=== PATIENT | female | born 1960 | race Hispanic/Latino ===

== ENCOUNTER 2016-04-19 23:50 | Inpatient (IN) | payer OTHER ==
[2016-04-20] MEDS ORDERED: LIBRIUM PO ONE (00:52)
--- NOTE | 2016-04-20 00:54 | Emergency Department Report ---
ED General Adult HPI - General Chief complaint: Seizure Stated complaint: SEIZURE Time Seen by Provider: 04/20/16 00:43 Source: patient, RN notes reviewed Mode of arrival: Stretcher Limitations: No Limitations - History of Present Illness Initial comments: This is a 56-year-old female. She is previously unknown to me. Has a past medical history of cervical fracture, seizure disorder, vertigo, alcohol dependency. Patient is sent to the ER for evaluation of seizure. Patient last reports a prior seizure a few months ago. She is looking to get detoxed from alcohol and last consumed alcohol 10 days ago. She takes Xanax and Ambien chronically. She has been taking her Xanax and not missed any doses. She is not homicidal. She is not suicidal. She is not experiencing hallucinations. She has a chronic right-sided foot drop which is not new, worse and different. Patient had a seizure today. She states that she fell out of a wheelchair. Hit her head. -: Sudden Severity scale (0 -10): 8 Improves with: none Worsens with: none Associated Symptoms: seizure. denies: confusion, chest pain, fever/chills, loss of appetite, malaise, nausea/vomiting, rash, shortness of breath, syncope, weakness - Related Data Home Medications Medication Instructions Recorded Confirmed Last Taken ALPRAZolam [Xanax TAB] 1 mg PO BID 04/20/16 04/20/16 2 Days Ago Zolpidem [Ambien] 10 mg PO QHS 04/20/16 04/20/16 1 Day Ago 10 Allergies Allergy/AdvReac Type Severity Reaction Status Date / Time azithromycin Allergy Unknown Verified 04/20/16 00:28 [From Zithromax Z-Mitchell] Sulfa (Sulfonamide Allergy Rash Verified 04/20/16 00:28 Antibiotics) ED Review of Systems ROS: Stated complaint: SEIZURE Other details as noted in HPI Constitutional: malaise Eyes: denies: vision change ENT: denies: epistaxis Respiratory: denies: cough Cardiovascular: denies: syncope Gastrointestinal: denies: abdominal pain Genitourinary: as per HPI Musculoskeletal: myalgia Neurological: weakness Psychiatric: as per HPI, depression, suicidal thoughts ED Past Medical Hx - Past Medical History Previous Medical History?: No Hx Psychiatric Treatment: Yes (anxiety) - Surgical History Additional Surgical History: Neck and back - Social History Smoking Status: Current Every Day Smoker Substance Use Type: Alcohol - Medications Home Medications: Home Medications Medication Instructions Recorded Confirmed Last Taken Type ALPRAZolam [Xanax TAB] 1 mg PO BID 04/20/16 04/20/16 2 Days Ago History Zolpidem [Ambien] 10 mg PO QHS 04/20/16 04/20/16 1 Day Ago History 10 ED Physical Exam - General Limitations: Physical Limitation General appearance: alert, in no apparent distress - Head Head exam: Present: atraumatic, normocephalic - Eye Eye exam: Present: normal appearance, PERRL, EOMI. Absent: nystagmus - ENT ENT exam: Present: normal exam, normal orophraynx, mucous membranes moist, normal external ear exam - Neck Neck exam: Present: normal inspection, full ROM. Absent: tenderness, meningismus - Respiratory Respiratory exam: Present: normal lung sounds bilaterally. Absent: respiratory distress, wheezes, rales, rhonchi, stridor, chest wall tenderness - Cardiovascular Cardiovascular Exam: Present: regular rate, normal rhythm, normal heart sounds. Absent: bradycardia, tachycardia, irregular rhythm, systolic murmur, diastolic murmur, rubs, gallop - GI/Abdominal GI/Abdominal exam: Present: soft, normal bowel sounds. Absent: distended, tenderness, guarding, rebound, rigid, pulsatile mass - Extremities Exam Extremities exam: Present: normal inspection, full ROM, normal capillary refill , other (there is a chronic right lower extremity foot drop. This is not new, worsening or different). Absent: pedal edema, joint swelling, calf tenderness - Back Exam Back exam: Present: normal inspection, full ROM. Absent: tenderness, CVA tenderness (R), CVA tenderness (L), muscle spasm, paraspinal tenderness, vertebral tenderness - Neurological Exam Neurological exam: Present: alert, oriented X3, normal gait (patient is able to ambulate with assistance), other (Extraocular movements intact. Tongue midline. No facial droop. Facial sensation intact to light touch in the V1, V2 , V3 distribution bilaterally. 5 and 5 strength in 4 extremities.. Sensation is intact to light touch in 4 extremities.). Absent: motor sensory deficit - Psychiatric Psychiatric exam: Present: normal affect, normal mood - Skin Skin exam: Present: warm, dry, intact, normal color. Absent: rash ED Course Vital Signs 04/20/16 04/20/16 04/20/16 00:21 01:30 03:00 Temperature 98.5 F 97.9 F Pulse Rate 94 H 80 Respiratory 14 18 Rate Blood Pressure 148/98 Blood Pressure 148/98 135/89 [Right] O2 Sat by Pulse 99 98 99 Oximetry - Reevaluation(s) Reevaluation #1: 04/20/16 02:16 Differential diagnosis: Intracranial injury, cervical spine injury, electrolyte derangement, alcohol withdrawal seizure, breakthrough seizure secondary to medication noncompliance, benzodiazepine withdrawal seizure Assessment and plan: 56-year-old female with reported history of seizure disorder, not taking antiepileptic drugs at this time, also has history of alcohol dependence, chronically on benzodiazepines. Has a GCS of 15, with an NIH score of 0. No tongue fasciculations. Not currently hallucinating. Does not meet 1013 criteria at this time. Laboratory studies indicated hypomagnesemia, hyponatremia, may be hypovolemic hyponatremia. Banana bag is oriented. IV fluids are ordered. Magnesium supplementation is ordered. Librium is ordered. CT scan of the head and cervical spine are pending. Urinalysis pending. Reevaluation #2: 04/20/16 03:21 patient seen and examined by Caleb Anderson, who recommends 1013 for suicidiality Reevaluation #3: 04/20/16 05:03 cases discussed with the Hospital physician, Dr. Engel, who accepts the patient to her service. At her request, I have discussed the patient's electrolyte imbalance with nephrology on-call, Dr. Chávez. He does not recommend hypertonic saline at this time. He agrees with the patient's current medical management. ED Medical Decision Making - Lab Data Result diagrams: 04/20/16 01:27 04/20/16 01:27 Vital Signs 04/20/16 00:21 Temperature 98.5 F Pulse Rate 94 H Respiratory 14 Rate Blood Pressure 148/98 Blood Pressure 148/98 [Right] O2 Sat by Pulse 99 Oximetry Lab Results 04/20/16 04/20/16 Range/Units 01:27 01:27 WBC 6.3 (4.5-11.0) K/mm3 RBC 3.65 (3.65-5.03) M/mm3 Hgb 12.9 (10.1-14.3) gm/dl Hct 37.7 (30.3-42.9) % MCV 103 H (79-97) fl MCH 35 H (28-32) pg MCHC 34 (30-34) % RDW 16.1 H (13.2-15.2) % Plt Count 106 L (140-440) K/mm3 Sodium 126 L (137-145) mmol/L Potassium 4.1 (3.6-5.0) mmol/L Chloride 89.1 L (98-107) mmol/L Carbon Dioxide 25 (22-30) mmol/L Anion Gap 16 mmol/L BUN 6 L (7-17) mg/dL Creatinine 0.5 L (0.7-1.2) mg/dL Estimated GFR > 60 ml/min BUN/Creatinine Ratio 12.00 % Glucose 98 (65-100) mg/dL Calcium 8.2 L (8.4-10.2) mg/dL Magnesium 1.4 L (1.7-2.3) mg/dL Total Bilirubin 1.2 (0.1-1.2) mg/dL AST 76 H (5-40) units/L ALT 41 (7-56) units/L Alkaline Phosphatase 196 H (35-129) units/L Total Protein 6.1 L (6.3-8.2) g/dL Albumin 2.9 L (3.9-5) g/dL Albumin/Globulin Ratio 0.9 % - Radiology Data Radiology results: report reviewed, image reviewed interpreted by me: X-ray of the chest is negative for acute disease. CT scan of the brain is negative. Noncontrast CT scan of the cervical spine negative for acute disease. Compression deformity noted at C7, this is consistent with patient's prior history. Critical care attestation.: If time is entered above; I have spent that time in minutes in the direct care of this critically ill patient, excluding procedure time. ED Disposition Clinical Impression: Hyponatremia, Hypomagnesemia, Seizure, Mood disorder Disposition: OP ADMITTED IP TO THIS HOSP Is pt being admited?: Yes Condition: Good Referrals: PRIMARY CARE,MD [Primary Care Provider] - 3-5 Days
[2016-04-20 01:44] LABS: Hematocrit 37.7 % (30.3-42.9); Hemoglobin 12.9 gm/dl (10.1-14.3); Mean Corpuscular HGB Conc 34 % (30-34); Mean Corpuscular Hemoglobin 35 pg (28-32); Mean Corpuscular Volume 103 fl (79-97); Platelet Count 106 K/mm3 (140-440); Red Blood Count 3.65 M/mm3 (3.65-5.03); Red Cell Distribution Width 16.1 % (13.2-15.2); White Blood Count 6.3 K/mm3 (4.5-11.0)
[2016-04-20 02:09] LABS: Alanine Aminotransferase 41 units/L (7-56); Albumin 2.9 g/dL (3.9-5); Albumin/Globulin Ratio 0.9 %; Alkaline Phosphatase 196 units/L (35-129); Anion Gap 16 mmol/L; Bilirubin,Total 1.2 mg/dL (0.1-1.2); Blood Urea Nitrogen 6 mg/dL (7-17); Calcium 8.2 mg/dL (8.4-10.2); Carbon Dioxide 25 mmol/L (22-30); Chloride 89.1 mmol/L (98-107); Glucose 98 mg/dL (65-100); Magnesium 1.4 mg/dL (1.7-2.3); Potassium 4.1 mmol/L (3.6-5.0); Sodium 126 mmol/L (137-145); Total Protein 6.1 g/dL (6.3-8.2)
[2016-04-20] MEDS ORDERED: MAGNESIUM SULFATE 2GM/50ML 2 GM/50 ML BAG IV ONE (02:13)
[2016-04-20] MEDS ORDERED: NACL 0.9% 1000 ML 1,000 ML IV ONE (02:13)
[2016-04-20] MEDS ORDERED: VITAMIN B-1 100 MG, FOLVITE 1 MG, INFUVITE 10 ML in NACL 0.9% 1000 ML 1,000 ML IV ONE (02:17)
[2016-04-20 04:07] LABS: Bacteria,Urine 1+ /HPF (Negative); Bilirubin,Urine NEG (Negative); Blood,Urine NEG (Negative); Ketones,Urine NEG (Negative); Leukocyte Esterase,Urine SM (Negative); Nitrite,Urine NEG (Negative); Protein,Urine <15 mg/dL mg/dL (Negative); Urobilinogen,Urine < 2.0 mg/dL (<2.0)
--- NOTE | 2016-04-20 04:40 | Admit Criteria Form ---
Admission Criteria Documentation: SEIZURE Clinical Indications for Admission to Inpatient Care (Place 'X' for any and all applicable criteria): Admission is indicated for seizure and ANY ONE of the following(1)(2)(3)(4)(5): [ X]I. Inpatient admission required rather than observation care (Also use Seizure: Observation Care Criteria as appropriate) because of ANY ONE of the following: [ ]a) Altered mental status that is severe or persistent [ ]b) New focal neurologic deficit that is severe or persistent [ ]c) Metabolic disorder (eg, hypoglycemia, hyponatremia) that is severe or persistent [ ]d) Recurrent seizure [ ]e) Outpatient antiseizure regimen cannot be established (eg , patient cannot tolerate medication, initiation requires inpatient care) [ ]f) Need for ongoing intravenous infusion of antiseizure medication [ ]g) Cardiac arrhythmias of immediate concern [ ]h) Cerebral bleeding, hydrocephalus, or vasospasm monitoring (14) [ ]i) Increased intracranial pressure or cerebral edema monitoring (15) [X ]j) Other treatment or monitoring requiring inpatient admission [ ]II. Status epilepticus [A] or repetitive seizures not controlled with emergent treatment (6)(8) [ ]III. Brain disorder (eg, tumor, edema, and hydrocephalus) that requiring monitoring or intervention available only at inpatient level of care. [ ]IV. Brain insult (eg, severe trauma, stroke, drug toxicity, or withdrawal) that requires monitoring or intervention available only at inpatient level of care (10)(11) Extended stay beyond goal length of stay may be needed for (22) [ ]a) Complications of status epilepticus [ ]b) Refractory status epilepticus [ ]c) Etiology-specific therapy for conditions such as MEDICAL REVIEW SPECIALIST infection, head injury,eclampsia, severe metabolic abnormalities, and brain tumor [ ]d) Residual neurologic damage, [ ]e) Initiation of significant change to anticonvulsant treatment [ ]f) Older patients (65 years or older) [ ]g) Patient requiring intubation (eg, to protect airway) The original [facility] content created by [employer] has been revised. The portions of the content which have been revised are identified through the use of italic text or in bold, and [facility] [employer] [employer] has neither reviewed nor approved the modified material. All other unmodified content is copyright [facility]. Please see references footnoted in the original [facility] edition 2016 Admission Criteria Met: Yes
--- NOTE | 2016-04-20 06:22 | Cat Scan Report ---
FINAL REPORT EXAM: CT HEAD/BRAIN WO CON HISTORY: Seizure TECHNIQUE: CT of the head was performed. No intravenous contrast was administered. PRIORS: None. FINDINGS: There is moderate cerebral atrophy. There is no evidence of intracranial hemorrhage. There is no edema, mass effect or midline shift. There are no abnormal extra-axial fluid collections. The ventricles are appropriate for brain volume. There is no skull fracture seen. There is posterior scalp swelling/contusion. The visualized aspects of the sinuses are clear. IMPRESSION: There is no acute intracranial abnormality identified.
--- NOTE | 2016-04-20 06:25 | Cat Scan Report ---
FINAL REPORT EXAM: CT CERVICAL SPINE WO CON HISTORY: Seizure TECHNIQUE: A noncontrast CT of the cervical spine was performed. Coronal and sagittal reformatted images were obtained. PRIORS: None. FINDINGS: There is a mild compression deformity involving C7. This is of unknown age but probably not acute. There is no other evidence for fracture. Remaining cervical vertebrae maintain their height and alignment. Its there are multilevel mild central disc protrusions but no significant spinal stenosis seen. There are mild to moderate facet degenerative changes, left more than right. Its IMPRESSION: C7 mild compression deformity is of unknown age but not likely acute. No other evidence of fracture. No vertebral subluxation.
--- NOTE | 2016-04-20 07:52 | XRay Report ---
Single view chest: History: Cough. Findings: Normal cardiomediastinal silhouette. Trachea is midline. No consolidation, pneumothorax or pleural effusion. Impression: No acute cardiopulmonary findings.
--- NOTE | 2016-04-20 10:53 | Admit Criteria Form ---
Admission Criteria Documentation: HYPONATREMIA; HYPERNATREMIA; HYPOKALEMIA; HYPERKALEMIA; HYPOCALCEMIA; HYPERCALCEMIA Clinical Indications for Inpatient Care (Place 'X' for any and all applicable criteria): Ongoing inpatient care may be indicated for ANY ONE of the following [G](1)(2)(3 )(5): [X ]I. Hyponatremia with ANY ONE of the following: [X ]a) Sodium less than 130 mEq/L (mmol/L) (new) (6)(22) [ ]b) Sodium less than 135 mEq/L (mmol/L) with ANY ONE of the following: [ ]i) Severe medical etiology requiring inpatient management (eg, heart failure, hypovolemia) [ ]ii) Altered mental status [ ]iii) Seizures [ ]II. Hypernatremia with ANY ONE of the following: [ ]a) Sodium greater than 155 mEq/L (mmol/L) [ ]b) Sodium greater than 150 mEq/L (mmol/L) with ANY ONE of the following: [ ] i) Altered mental status [ ]ii) Seizures [ ]iii) Severe medical etiology (eg, hypovolemia, diabetes insipidus) [ ]iv) Severe weakness [ ]v) Severe medical etiology (eg, hemolysis, infection, drug overdose) [ ]III. Hypokalemia with ANY ONE of the following: [ ]a) Potassium less than 2.5 mEq/L (mmol/L) despite outpatient and emergency treatment [ ]b) Potassium less than 3.0 mEq/L (mmol/L) with ANY ONE of the following: [ ]i) Weakness [ ]ii) Cardiac abnormality (eg, arrhythmia, conduction disturbance) [ ]iii) Cardiac ischemia [ ]iv) Ileus [ ]v) Ongoing medical cause requiring inpatient management. ( e.g., acute renal wasting, SIADH) [ ]vi) Other severe symptoms [ ] IV. Hyperkalemia with ANY ONE of the following: [ ]a) Potassium greater than 6.5 mEq/L (mmol/L) [ ]b) Potassium greater than 5 mEq/L (mmol/L) with ANY ONE of the following: [ ]i) Severe ECG findings [H] [ ]ii) Acute worsening of renal failure (creatinine greater than 2.5 mg/dL (221 micromoles/L) or significant elevation for age and size) [ ] V. Hypocalcemia with ANY ONE of the following: [ ]a) Calcium less than 7 mg/dL (1.75 mmol/L) despite outpatient and emergency treatment(19) [ ]b) Calcium less than 8 mg/dL (2 mmol/L) with significant symptoms or findings; examples include: [ ]i) Cardiac abnormality (eg, arrhythmia or conduction disturbance) [ ]ii) Altered mental status [ ]iii) Seizures [ ]iv) Breathing difficulty [ ]v) Muscle spasms [ ]. Hypercalcemia with ANY ONE of the following: [ ]a) Calcium greater than 14 mg/dL (3.5 mmol/L) [ ]b) Calcium greater than 12 mg/dL (3 mmol/L) with ANY ONE of the following: [ ]i) Significant dehydration or hypovolemia as indicated by ANY ONE of the following(2): [ ]1. Clinically significant dehydration as indicated by ANY ONE of the following: [ ]A. Acute loss of weight from baseline (5% of body weight in adults, 9% in pediatric patients) [ ]B. Hemodynamic instability [ ]C. Acute renal failure [ ]D. Serum sodium greater than 150 mEq/L (mmol/L) [ ]2) Dehydration that is persistent indicated by ALL of the following: [ ]A. Oral rehydration therapy not tolerated or insufficient to adequately correct dehydration [ ]B. Appropriate intravenous treatment (eg, fluids ) does not readily correct dehydration ie, after 12 to 24 hours of treatment) [ ]ii) Significant symptoms or findings; examples include: [ ]1) Altered mental status [ ]2) Cardiac abnormality (eg, arrhythmia, conduction disturbance) [ ]3) Cardiac abnormality (eg, arrhythmia, conduction disturbance) The original [facility] content created by [employer] has been revised. The portions of the content which have been revised are identified through the use of italic text or in bold, and [facility] has neither reviewed nor approved the modified material. All other unmodified content is copyright [facility] [employer] Please see references footnoted in the original [facility] [employer] edition 2016 Admission Criteria Met: Yes
[2016-04-20] MEDS ORDERED: MILK OF MAGNESIA PO PRN (11:10)
[2016-04-20] MEDS ORDERED: DULCOLAX PR PRN (11:10)
[2016-04-20] MEDS ORDERED: LIBRIUM PO PRN ×2 (11:10)
[2016-04-20] MEDS ORDERED: TYLENOL PO PRN (11:10)
[2016-04-20] MEDS ORDERED: ATIVAN IV PRN (11:10)
[2016-04-20] MEDS ORDERED: ZOFRAN IV PRN (11:10)
--- NOTE | 2016-04-20 11:15 | History and Physical Report ---
History of Present Illness Chief complaint: I had a seizure History of present illness: 56F with pmh of seizure disorder, has not been on seizure meds in over 6 months. She has a previous hx of etoh dependence, but has not had a drink since the last time she went to the [facility] about a month ago, admits to smoking a pack a day. She was suffering from Vertigo, and was started on medication for it , shortly after starting medication, she noted that it knocked her out and made her very sleepy, and actually made the vertigo worse. She present after she was sitting in a chair and she felt she got "knocked out" by her meds and she collapsed on the table in front of her. It was a witnessed event and the people who were there told her that her extremities were shaking like a convulsion. She has a chronic right-sided foot drop which is unchanged Past History Past Medical History: seizures (meds were dc in past b/c they caused visual hallucinations), other (vertigo) Past Surgical History: Other (neck and back sx) Social history: smoking (one ppd), alcohol abuse (no hx of withdrawal, last drink one month ago) Family history: no significant family history Medications and Allergies Allergies Allergy/AdvReac Type Severity Reaction Status Date / Time azithromycin Allergy Unknown Verified 04/20/16 00:28 [From Zithromax Z-Mitchell] Sulfa (Sulfonamide Allergy Rash Verified 04/20/16 00:28 Antibiotics) Home Medications Medication Instructions Recorded Confirmed Last Taken Type ALPRAZolam [Xanax TAB] 1 mg PO BID 04/20/16 04/20/16 2 Days Ago History Zolpidem [Ambien] 10 mg PO QHS 04/20/16 04/20/16 1 Day Ago History 10 Active Meds: Active Medications Acetaminophen (Tylenol) 650 mg PO Q4H PRN PRN Reason: Pain MILD(1-3)/Fever >100.5/MCINTYRE Alprazolam (Xanax) 1 mg PO BID VINOD Bisacodyl (Dulcolax) 10 mg WA QDAY PRN PRN Reason: Constipation unrelieved by MOM Chlordiazepoxide HCl (Librium) 50 mg PO Q1H PRN PRN Reason: CIWA-Ar 8-15 Chlordiazepoxide HCl (Librium) 100 mg PO Q1H PRN PRN Reason: CIWA-Ar 16-25 Enoxaparin Sodium (Lovenox) 40 mg SUB-Q QDAY VINOD Sodium Chloride (Nacl 0.9% 1000 Ml) 1,000 mls @ 100 mls/hr IV DIRECT VINOD Lorazepam (Ativan) 4 mg IV Q15MIN PRN PRN Reason: CIWA-Ar >25 Stop: 04/25/16 11:11 Magnesium Hydroxide (Milk Of Magnesia) 30 ml PO Q4H PRN PRN Reason: Constipation Ondansetron HCl (Zofran) 4 mg IV Q8H PRN PRN Reason: N/V unrelieved by Reglan Zolpidem Tartrate (Ambien) 10 mg PO QHS PRN PRN Reason: Insomnia Review of Systems All systems: negative (as stated in HPI) Exam - Physical Exam Narrative exam: General: Patient appears well in no distress HEENT: MMM, EOMI cardiac: S1-S2 heard lungs: clear to auscultation, abdomen: soft, nontender, nondistended bowel sounds positive extremities: no edema clubbing or cyanosis Skin: no rash or lesion Neuro: right foot drop , which is chronic Psych: appropriate behavior and mood, cognition intact - Constitutional Vitals: Temp Pulse Resp BP Pulse Ox 98.4 F 86 14 153/85 99 04/20/16 07:24 04/20/16 09:37 04/20/16 09:37 04/20/16 09:37 04/20/16 09:37 Results - Labs CBC & Chem 7: 04/20/16 01:27 04/21/16 08:09 Labs: Laboratory Last Values WBC 6.3 K/mm3 (4.5-11.0) 04/20/16 01:27 RBC 3.65 M/mm3 (3.65-5.03) 04/20/16 01:27 Hgb 12.9 gm/dl (10.1-14.3) 04/20/16 01:27 Hct 37.7 % (30.3-42.9) 04/20/16 01:27 MCV 103 fl (79-97) H 04/20/16 01:27 MCH 35 pg (28-32) H 04/20/16 01:27 MCHC 34 % (30-34) 04/20/16 01:27 RDW 16.1 % (13.2-15.2) H 04/20/16 01:27 Plt Count 106 K/mm3 (140-440) L 04/20/16 01:27 Sodium 126 mmol/L (137-145) L 04/20/16 01:27 Potassium 4.1 mmol/L (3.6-5.0) 04/20/16 01:27 Chloride 89.1 mmol/L (98-107) L 04/20/16 01:27 Carbon Dioxide 25 mmol/L (22-30) 04/20/16 01:27 Anion Gap 16 mmol/L 04/20/16 01:27 BUN 6 mg/dL (7-17) L 04/20/16 01:27 Creatinine 0.5 mg/dL (0.7-1.2) L 04/20/16 01:27 Estimated GFR > 60 ml/min 04/20/16 01:27 BUN/Creatinine Ratio 12.00 % 04/20/16 01:27 Glucose 98 mg/dL (65-100) 04/20/16 01:27 Calcium 8.2 mg/dL (8.4-10.2) L 04/20/16 01:27 Magnesium 1.4 mg/dL (1.7-2.3) L 04/20/16 01:27 Total Bilirubin 1.2 mg/dL (0.1-1.2) 04/20/16 01:27 AST 76 units/L (5-40) H 04/20/16 01:27 ALT 41 units/L (7-56) 04/20/16 01:27 Alkaline Phosphatase 196 units/L (35-129) H 04/20/16 01:27 Total Protein 6.1 g/dL (6.3-8.2) L 04/20/16 01:27 Albumin 2.9 g/dL (3.9-5) L 04/20/16 01:27 Albumin/Globulin Ratio 0.9 % 04/20/16 01:27 TSH 1.500 mlU/mL (0.270-4.200) 04/20/16 02:59 Urine Color Yellow (Yellow) 04/20/16 03:20 Urine Turbidity Clear (Clear) 04/20/16 03:20 Urine pH 8.0 (5.0-7.0) H 04/20/16 03:20 Ur Specific [place] 1.003 (1.003-1.030) 04/20/16 03:20 Urine Protein <15 mg/dl mg/dL (Negative) 04/20/16 03:20 Urine Glucose (UA) Neg mg/dL (Negative) 04/20/16 03:20 Urine Ketones Neg mg/dL (Negative) 04/20/16 03:20 Urine Blood Neg (Negative) 04/20/16 03:20 Urine Nitrite Neg (Negative) 04/20/16 03:20 Urine Bilirubin Neg (Negative) 04/20/16 03:20 Urine Urobilinogen < 2.0 mg/dL (<2.0) 04/20/16 03:20 Ur Leukocyte Esterase Sm (Negative) 04/20/16 03:20 Urine WBC (Auto) 14.0 /HPF (0.0-6.0) H 04/20/16 03:20 Urine RBC (Auto) 5.0 /HPF (0.0-6.0) 04/20/16 03:20 U Epithel Cells (Auto) 5.0 /HPF (0-13.0) 04/20/16 03:20 Urine Bacteria (Auto) 1+ /HPF (Negative) 04/20/16 03:20 - Imaging and Cardiology CT Scan - head: image reviewed (and C spine; no acute abnormaliites, chronic c7 deformity from previous sx) Assessment and Plan Assessment and plan: 56-year-old woman with a past medical history of seizure disorder who presents status post falling out of her wheelchair, and suspected seizure 1. Suspected seizure Patient was not on seizure medications previously, I'll put her on Keppra and obtain EEG and neurology consult 2. Status post fall/trauma CT head and C-spine did not show any acute fractures, patient reported on pain medications, PT eval 3. Hypomagnesemia Replete IV 4. Hyponatremia Patient is to receive normal saline 5. UTI Obtain urine cultures and start empiric antibiotics 6. History of alcohol abuse Continue benzodiazepines twice a day which she takes at home, last drink was a month ago, not at risk for withdrawal at this time, counseled on cessation 7. HTN optimize medications 8. Tobacco abuse counseled >10 minutes offered nicotine patch and she does not want them. 9. Moderate malnutrition encourage increase intake of balanced diet Plan of care discussed with patient/family: Yes
[2016-04-20] MEDS ORDERED: MAGNESIUM SULFATE 4GM/100ML 4 GM/100 ML BAG IV ONE ×2 (12:20→16:00)
[2016-04-20] MEDS ORDERED: APRESOLINE IV PRN (12:23)
[2016-04-20] MEDS: FOLVITE PO SCH (14:58)
[2016-04-20] MEDS: VITAMIN B-1 PO SCH (15:06)
[2016-04-20] MEDS: KEPPRA PO SCH ×2 (15:06→21:44)
[2016-04-20] MEDS: NACL 0.9% 1000 ML 1,000 ML IV SCH (15:44)
[2016-04-20] MEDS: HABITROL TD SCH (17:57)
[2016-04-20] MEDS: XANAX PO SCH (21:43)
[2016-04-20] MEDS: AMBIEN PO PRN (21:44)
[2016-04-21] MEDS ORDERED: HALDOL IM ONE (03:33)
[2016-04-21 09:02] LABS: Blood Urea Nitrogen 3 mg/dL (7-17); Carbon Dioxide 21 mmol/L (22-30)
[2016-04-21 09:03] LABS: Anion Gap 17 mmol/L; Chloride 100.6 mmol/L (98-107); Glucose 70 mg/dL (65-100); Potassium 3.6 mmol/L (3.6-5.0); Sodium 135 mmol/L (137-145)
[2016-04-21] MEDS: ROCEPHIN/NS 1 GM/50 ML 1 GM/50 ML BAG IV SCH (09:14)
[2016-04-21] MEDS: LOVENOX SUB-Q SCH (09:15)
[2016-04-21] MEDS: HABITROL TD SCH (11:39)
[2016-04-21] MEDS: HALDOL IM PRN ×2 (11:39→14:11)
[2016-04-21] MEDS: FOLVITE PO SCH (11:39)
[2016-04-21] MEDS: KEPPRA PO SCH (11:40)
[2016-04-21] MEDS: XANAX PO SCH (11:40)
[2016-04-21] MEDS: VITAMIN B-1 PO SCH (11:40)
--- NOTE | 2016-04-21 14:22 | Progress Note ---
Assessment and Plan Assessment and plan: Suspected seizure-like Activity - Neurology consulted - Patient is on Keppra - No seizure activity after admission Status post fall - CT of head and neck was done for fracture Psychosis - Psych consult is placed - Patient is agitated and is on haloperidol - Patient is on restraints History of alcohol abuse - Continue home dose benzos - History was examined ago, she is out of the [facility] for withdrawal DVT prophylaxis Disposition - Continue inpatient care History Interval history: Patient was seen and evaluated this morning, the patient is agitated and is on restraints. Hospitalist Physical - Physical exam Narrative exam: Patient is agitated, and on restraints. The patient appeared well nourished and normally developed. Vital signs as documented. Head exam is unremarkable. No scleral icterus . Neck is without jugular venous distension, thyromegaly, or carotid bruits. Lungs are clear to auscultation. Cardiac exam reveals regular rate and Rhythm. First and second heart sounds normal. No murmurs, rubs or gallops. Abdominal exam reveals normal bowel sounds, no masses, no organomegaly and no aortic enlargement. Extremities are nonedematous and both femoral and pedal pulses are normal. HEAD CHEF: Alert .. - Constitutional Vitals: Temp Pulse Resp BP Pulse Ox 98.1 F 80 16 144/82 98 04/21/16 08:00 04/21/16 08:00 04/21/16 08:00 04/21/16 08:00 04/21/16 08:00 Results - Labs CBC & Chem 7: 04/20/16 01:27 04/21/16 08:09 Labs: Laboratory Last Values WBC 6.3 K/mm3 (4.5-11.0) 04/20/16 01:27 RBC 3.65 M/mm3 (3.65-5.03) 04/20/16 01:27 Hgb 12.9 gm/dl (10.1-14.3) 04/20/16 01:27 Hct 37.7 % (30.3-42.9) 04/20/16 01:27 MCV 103 fl (79-97) H 04/20/16 01:27 MCH 35 pg (28-32) H 04/20/16 01:27 MCHC 34 % (30-34) 04/20/16 01:27 RDW 16.1 % (13.2-15.2) H 04/20/16 01:27 Plt Count 106 K/mm3 (140-440) L 04/20/16 01:27 Sodium 135 mmol/L (137-145) L D 04/21/16 08:09 Potassium 3.6 mmol/L (3.6-5.0) 04/21/16 08:09 Chloride 100.6 mmol/L (98-107) 04/21/16 08:09 Carbon Dioxide 21 mmol/L (22-30) L 04/21/16 08:09 Anion Gap 17 mmol/L 04/21/16 08:09 BUN 3 mg/dL (7-17) L 04/21/16 08:09 Creatinine 0.5 mg/dL (0.7-1.2) L 04/21/16 08:09 Estimated GFR > 60 ml/min 04/21/16 08:09 BUN/Creatinine Ratio 6.00 % 04/21/16 08:09 Glucose 70 mg/dL (65-100) 04/21/16 08:09 Calcium 8.0 mg/dL (8.4-10.2) L 04/21/16 08:09 Magnesium 1.4 mg/dL (1.7-2.3) L 04/20/16 01:27 Total Bilirubin 1.2 mg/dL (0.1-1.2) 04/20/16 01:27 AST 76 units/L (5-40) H 04/20/16 01:27 ALT 41 units/L (7-56) 04/20/16 01:27 Alkaline Phosphatase 196 units/L (35-129) H 04/20/16 01:27 Ammonia 23.0 umol/L (25-60) L 04/20/16 11:24 Total Protein 6.1 g/dL (6.3-8.2) L 04/20/16 01:27 Albumin 2.9 g/dL (3.9-5) L 04/20/16 01:27 Albumin/Globulin Ratio 0.9 % 04/20/16 01:27 TSH 1.500 mlU/mL (0.270-4.200) 04/20/16 02:59 Urine Color Yellow (Yellow) 04/20/16 03:20 Urine Turbidity Clear (Clear) 04/20/16 03:20 Urine pH 8.0 (5.0-7.0) H 04/20/16 03:20 Ur Specific [place] 1.003 (1.003-1.030) 04/20/16 03:20 Urine Protein <15 mg/dl mg/dL (Negative) 04/20/16 03:20 Urine Glucose (UA) Neg mg/dL (Negative) 04/20/16 03:20 Urine Ketones Neg mg/dL (Negative) 04/20/16 03:20 Urine Blood Neg (Negative) 04/20/16 03:20 Urine Nitrite Neg (Negative) 04/20/16 03:20 Urine Bilirubin Neg (Negative) 04/20/16 03:20 Urine Urobilinogen < 2.0 mg/dL (<2.0) 04/20/16 03:20 Ur Leukocyte Esterase Sm (Negative) 04/20/16 03:20 Urine WBC (Auto) 14.0 /HPF (0.0-6.0) H 04/20/16 03:20 Urine RBC (Auto) 5.0 /HPF (0.0-6.0) 04/20/16 03:20 U Epithel Cells (Auto) 5.0 /HPF (0-13.0) 04/20/16 03:20 Urine Bacteria (Auto) 1+ /HPF (Negative) 04/20/16 03:20 Plasma/Serum Alcohol < 0.01 gm% (0-0.07) 04/20/16 12:28
[2016-04-21 16:00] LABS: Albumin 2.7 g/dL (3.9-5); Albumin/Globulin Ratio 0.9 %; Bilirubin,Direct 0.4 mg/dL (0-0.2); Bilirubin,Indirect 0.6 mg/dL; Total Protein 5.7 g/dL (6.3-8.2)
[2016-04-21] MEDS ORDERED: GEODON IM ONE (16:00)
[2016-04-21] MEDS ORDERED: WATER FOR INJ (PF) 10 ML ONE (16:07)
[2016-04-21] MEDS: LIBRIUM PO SCH (16:21)
[2016-04-21] MEDS: ATIVAN IV PRN (17:16)
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
[2016-04-22] MEDS: KEPPRA PO SCH ×2 (02:00→09:43)
[2016-04-22] MEDS: XANAX PO SCH ×2 (02:00→09:44)
[2016-04-22] MEDS: LIBRIUM PO SCH ×3 (02:02→15:56)
[2016-04-22 07:13] LABS: Basophils % (Auto) 0.7 % (0.0-1.8); Hematocrit 31.4 % (30.3-42.9); Hemoglobin 10.8 gm/dl (10.1-14.3); Mean Corpuscular HGB Conc 34 % (30-34); Mean Corpuscular Hemoglobin 36 pg (28-32); Mean Corpuscular Volume 105 fl (79-97); Red Blood Count 2.99 M/mm3 (3.65-5.03); Red Cell Distribution Width 15.2 % (13.2-15.2); White Blood Count 5.6 K/mm3 (4.5-11.0)
[2016-04-22 07:42] LABS: Anion Gap 23 mmol/L; BUN/Creatinine Ratio 6.66; Blood Urea Nitrogen 4 mg/dL (7-17); Calcium 8.5 mg/dL (8.4-10.2); Carbon Dioxide 19 mmol/L (22-30); Chloride 98.6 mmol/L (98-107); Glucose 58 mg/dL (65-100); Potassium 3.6 mmol/L (3.6-5.0); Sodium 137 mmol/L (137-145)
[2016-04-22 08:20] LABS: Platelet Count 96 K/mm3 (140-440)
[2016-04-22] MEDS: VITAMIN B-1 PO SCH (09:43)
[2016-04-22] MEDS: FOLVITE PO SCH (09:43)
[2016-04-22] MEDS: THERAGRAN Tab PO SCH (09:43)
[2016-04-22] MEDS: LOVENOX SUB-Q SCH (09:44)
[2016-04-22] MEDS: ROCEPHIN/NS 1 GM/50 ML 1 GM/50 ML BAG IV SCH (09:44)
[2016-04-22] MEDS: HALDOL IM PRN ×2 (09:49→14:24)
--- NOTE | 2016-04-22 12:16 | Progress Note ---
Subjective - Reason for Consult Consult date: 04/22/16 Reason for consult: psychiatric follow up - Chief Complaint Chief complaint: cc: "this is my home." 56 year old WF who presented to [facility] after incurring a seizure after hitting her head once she became dizzy after taking vertigo medication. Patient currently presents with disorganized behavior and physical agitation requiring restraints. When asked why she presents here she started talking about this being her home and that "the girl is trying to kill me." "One of them is , today they tried." She was able to answer several questions in between here disorganization. She stated that she wasn't depressed. She denies any SI/HI/AH/VH. She did say she was paranoia but it was unclear what specifically she was trying to reference. She noted that she does drink etoh, last time was 4 days ago- contradicting the collateral from the chart. She usually drinks 2x per week. It's unclear how compliant patient is with her medications or whether she doesn't drink while taking her Xanax. Mental Status Exam - Vital signs Last Vital Signs Temp 98.5 F 04/22/16 08:24 Pulse 99 H 04/22/16 08:24 Resp 18 04/22/16 08:24 BP 123/74 04/22/16 08:24 Pulse Ox 97 04/22/16 08:24 - Exam Narrative exam: Today, 04/22/16, she continues to talk about "that girl." She point to objects in the room and states they belong to someone else. She is restless and attempting to pull off her restraint. Although, she was not aggressive. She mentioned her use of "zantac" is what brought her to the hospital. It was later confirmed with her that she took Xanax. She is disoriented. Orientation: person Affect: normal Mood: other (irritable, labile) Thought content: delusions Thought Process: Disoriented Perceptions: other (illusions) Speech: incoherent Concentration: unable to pay attention Motor activity: lethargic, restless Level of consciousness: confused Memory: Recent Impaired (unable to recall recent events) Sleep Symptoms: Restless Interaction: irritable Assessment and Plan 56 year old WF who presented to [facility] after incurring a seizure after hitting her head once she became dizzy after taking vertigo medication. Patient currently is highly agitated and disorganized at the time of interview. She was displaying psychotic symptoms and unable to give me a clear history. Agitation/psychosis: we do need collateral- preferably from the to determine extent of drinking and benzo use. The current behaviors could be suggestive of ongoing withdrawal and delirium tremens in the absence of any known psychotic illness. At this time suggest using one benzo for withdrawal purposes and proceeding with full detox from etoh/benzos. Supportive treatment while awaiting for further information. PRN use of ativan and an antipsychotic can be used in the meantime to address the physical aggression stemming from psychotic behaviors and any withdrawal. haldol 5mg IM q4 for aggression. continue with detox protocol with CIWA. Remove concurrent use of Xanax as the patient drinks and shouldn't be prescribed this medication. Will discuss with primary attending. 04/22/16: No changes in the above recommendations.
[2016-04-22] MEDS: HABITROL TD SCH (12:19)
[2016-04-22] MEDS: ATIVAN IV PRN ×2 (12:26→15:51)
--- NOTE | 2016-04-22 14:04 | Progress Note ---
Assessment and Plan Assessment and plan: Suspected seizure-like Activity - Neurology consulted - Patient is on Keppra - No seizure activity after admission Status post fall - CT of head and neck was done for fracture Psychosis - Psych consult is placed - Patient is agitated and is on haloperidol - Patient is on restraints History of alcohol abuse, DT - On CIWA protocol - Last drink was 2 days before admission DVT prophylaxis Disposition - Continue inpatient care History Interval history: Patient was seen and evaluated this morning, the patient is agitated and is on restraints. Hospitalist Physical - Physical exam Narrative exam: Patient is agitated, and on restraints. The patient appeared well nourished and normally developed. Vital signs as documented. Head exam is unremarkable. No scleral icterus . Neck is without jugular venous distension, thyromegaly, or carotid bruits. Lungs are clear to auscultation. Cardiac exam reveals regular rate and Rhythm. First and second heart sounds normal. No murmurs, rubs or gallops. Abdominal exam reveals normal bowel sounds, no masses, no organomegaly and no aortic enlargement. Extremities are nonedematous and both femoral and pedal pulses are normal. TEXTILE CONVERTER: Alert . - Constitutional Vitals: Temp Pulse Resp BP Pulse Ox 98.5 F 99 H 18 123/74 97 04/22/16 08:24 04/22/16 08:24 04/22/16 08:24 04/22/16 08:24 04/22/16 08:24 Results - Labs CBC & Chem 7: 04/22/16 06:29 04/22/16 06:29 Labs: Laboratory Last Values WBC 5.6 K/mm3 (4.5-11.0) 04/22/16 06:29 RBC 2.99 M/mm3 (3.65-5.03) L 04/22/16 06:29 Hgb 10.8 gm/dl (10.1-14.3) 04/22/16 06:29 Hct 31.4 % (30.3-42.9) D 04/22/16 06:29 MCV 105 fl (79-97) H 04/22/16 06:29 MCH 36 pg (28-32) H 04/22/16 06:29 MCHC 34 % (30-34) 04/22/16 06:29 RDW 15.2 % (13.2-15.2) 04/22/16 06:29 Plt Count 96 K/mm3 (140-440) L 04/22/16 06:29 Lymph % (Auto) 40.7 % (13.4-35.0) H 04/22/16 06:29 [place] % (Auto) 7.5 % (0.0-7.3) H 04/22/16 06:29 Eos % (Auto) 3.0 % (0.0-4.3) 04/22/16 06:29 Baso % (Auto) 0.7 % (0.0-1.8) 04/22/16 06:29 Lymph # 2.3 K/mm3 (1.2-5.4) 04/22/16 06:29 [place] # 0.4 K/mm3 (0.0-0.8) 04/22/16 06:29 Eos # 0.2 K/mm3 (0.0-0.4) 04/22/16 06:29 Baso # 0.0 K/mm3 (0.0-0.1) 04/22/16 06:29 Seg Neutrophils % 48.1 % (40.0-70.0) 04/22/16 06:29 Seg Neutrophils # 2.7 K/mm3 (1.8-7.7) 04/22/16 06:29 Sodium 137 mmol/L (137-145) 04/22/16 06:29 Potassium 3.6 mmol/L (3.6-5.0) 04/22/16 06:29 Chloride 98.6 mmol/L (98-107) 04/22/16 06:29 Carbon Dioxide 19 mmol/L (22-30) L 04/22/16 06:29 Anion Gap 23 mmol/L 04/22/16 06:29 BUN 4 mg/dL (7-17) L 04/22/16 06:29 Creatinine 0.6 mg/dL (0.7-1.2) L 04/22/16 06:29 Estimated GFR > 60 ml/min 04/22/16 06:29 BUN/Creatinine Ratio 6.66 % 04/22/16 06:29 Glucose 58 mg/dL (65-100) L 04/22/16 06:29 Calcium 8.5 mg/dL (8.4-10.2) 04/22/16 06:29 Magnesium 1.4 mg/dL (1.7-2.3) L 04/20/16 01:27 Total Bilirubin 1.0 mg/dL (0.1-1.2) 04/21/16 15:25 Direct Bilirubin 0.4 mg/dL (0-0.2) H 04/21/16 15:25 Indirect Bilirubin 0.6 mg/dL 04/21/16 15:25 AST 57 units/L (5-40) H 04/21/16 15:25 ALT 32 units/L (7-56) 04/21/16 15:25 Alkaline Phosphatase 155 units/L (35-129) H 04/21/16 15:25 Ammonia 38.0 umol/L (25-60) 04/21/16 15:25 Total Protein 5.7 g/dL (6.3-8.2) L 04/21/16 15:25 Albumin 2.7 g/dL (3.9-5) L 04/21/16 15:25 Albumin/Globulin Ratio 0.9 % 04/21/16 15:25 TSH 1.500 mlU/mL (0.270-4.200) 04/20/16 02:59 Urine Color Yellow (Yellow) 04/20/16 03:20 Urine Turbidity Clear (Clear) 04/20/16 03:20 Urine pH 8.0 (5.0-7.0) H 04/20/16 03:20 Ur Specific [place] 1.003 (1.003-1.030) 04/20/16 03:20 Urine Protein <15 mg/dl mg/dL (Negative) 04/20/16 03:20 Urine Glucose (UA) Neg mg/dL (Negative) 04/20/16 03:20 Urine Ketones Neg mg/dL (Negative) 04/20/16 03:20 Urine Blood Neg (Negative) 04/20/16 03:20 Urine Nitrite Neg (Negative) 04/20/16 03:20 Urine Bilirubin Neg (Negative) 04/20/16 03:20 Urine Urobilinogen < 2.0 mg/dL (<2.0) 04/20/16 03:20 Ur Leukocyte Esterase Sm (Negative) 04/20/16 03:20 Urine WBC (Auto) 14.0 /HPF (0.0-6.0) H 04/20/16 03:20 Urine RBC (Auto) 5.0 /HPF (0.0-6.0) 04/20/16 03:20 U Epithel Cells (Auto) 5.0 /HPF (0-13.0) 04/20/16 03:20 Urine Bacteria (Auto) 1+ /HPF (Negative) 04/20/16 03:20 Plasma/Serum Alcohol < 0.01 gm% (0-0.07) 04/20/16 12:28
[2016-04-22] MEDS: NACL 0.9% 1000 ML 1,000 ML IV SCH (15:57)
[2016-04-23] MEDS: KEPPRA PO SCH ×3 (01:14→21:37)
[2016-04-23] MEDS: LIBRIUM PO SCH ×3 (01:14→15:37)
[2016-04-23] MEDS: XANAX PO SCH ×2 (01:14→09:50)
[2016-04-23] MEDS: ATIVAN IV PRN ×2 (01:15→21:37)
[2016-04-23] MEDS: NACL 0.9% 1000 ML 1,000 ML IV SCH ×2 (01:20→13:39)
[2016-04-23] MEDS: HABITROL TD SCH (09:49)
[2016-04-23] MEDS: ROCEPHIN/NS 1 GM/50 ML 1 GM/50 ML BAG IV SCH (09:49)
[2016-04-23] MEDS: LOVENOX SUB-Q SCH (09:49)
[2016-04-23] MEDS: VITAMIN B-1 PO SCH (09:50)
[2016-04-23] MEDS: THERAGRAN Tab PO SCH (09:50)
[2016-04-23] MEDS: FOLVITE PO SCH (09:50)
--- NOTE | 2016-04-23 13:13 | Progress Note ---
Assessment and Plan Assessment and plan: Suspected seizure-like Activity - Neurology consulted - Patient is on Keppra - No seizure activity after admission Status post fall - CT of head and neck was done for fracture Psychosis - Psych consult is placed - Patient is agitated and is on haloperidol - Patient is on restraints History of alcohol abuse, DT - On CIWA protocol - Last drink was 2 days before admission DVT prophylaxis Disposition - Continue inpatient care History Interval history: Patient was seen and evaluated this morning, the patient was less agitated than yesterday but is on restraints. Hospitalist Physical - Physical exam Narrative exam: Patient is agitated, and on restraints. The patient appeared well nourished and normally developed. Vital signs as documented. Head exam is unremarkable. No scleral icterus . Neck is without jugular venous distension, thyromegaly, or carotid bruits. Lungs are clear to auscultation. Cardiac exam reveals regular rate and Rhythm. First and second heart sounds normal. No murmurs, rubs or gallops. Abdominal exam reveals normal bowel sounds, no masses, no organomegaly and no aortic enlargement. Extremities are nonedematous and both femoral and pedal pulses are normal. CERTIFIED PHARMACIST ASSISTANT: Alert . - Constitutional Vitals: Temp Pulse Resp BP Pulse Ox 98.6 F 76 18 120/67 97 04/23/16 08:00 04/23/16 08:00 04/23/16 08:00 04/23/16 08:00 04/23/16 08:00 Results - Labs CBC & Chem 7: 04/22/16 06:29 04/22/16 06:29 Labs: Laboratory Last Values WBC 5.6 K/mm3 (4.5-11.0) 04/22/16 06:29 RBC 2.99 M/mm3 (3.65-5.03) L 04/22/16 06:29 Hgb 10.8 gm/dl (10.1-14.3) 04/22/16 06:29 Hct 31.4 % (30.3-42.9) D 04/22/16 06:29 MCV 105 fl (79-97) H 04/22/16 06:29 MCH 36 pg (28-32) H 04/22/16 06:29 MCHC 34 % (30-34) 04/22/16 06:29 RDW 15.2 % (13.2-15.2) 04/22/16 06:29 Plt Count 96 K/mm3 (140-440) L 04/22/16 06:29 Lymph % (Auto) 40.7 % (13.4-35.0) H 04/22/16 06:29 [place] % (Auto) 7.5 % (0.0-7.3) H 04/22/16 06:29 Eos % (Auto) 3.0 % (0.0-4.3) 04/22/16 06:29 Baso % (Auto) 0.7 % (0.0-1.8) 04/22/16 06:29 Lymph # 2.3 K/mm3 (1.2-5.4) 04/22/16 06:29 [place] # 0.4 K/mm3 (0.0-0.8) 04/22/16 06:29 Eos # 0.2 K/mm3 (0.0-0.4) 04/22/16 06:29 Baso # 0.0 K/mm3 (0.0-0.1) 04/22/16 06:29 Seg Neutrophils % 48.1 % (40.0-70.0) 04/22/16 06:29 Seg Neutrophils # 2.7 K/mm3 (1.8-7.7) 04/22/16 06:29 Sodium 137 mmol/L (137-145) 04/22/16 06:29 Potassium 3.6 mmol/L (3.6-5.0) 04/22/16 06:29 Chloride 98.6 mmol/L (98-107) 04/22/16 06:29 Carbon Dioxide 19 mmol/L (22-30) L 04/22/16 06:29 Anion Gap 23 mmol/L 04/22/16 06:29 BUN 4 mg/dL (7-17) L 04/22/16 06:29 Creatinine 0.6 mg/dL (0.7-1.2) L 04/22/16 06:29 Estimated GFR > 60 ml/min 04/22/16 06:29 BUN/Creatinine Ratio 6.66 % 04/22/16 06:29 Glucose 58 mg/dL (65-100) L 04/22/16 06:29 Calcium 8.5 mg/dL (8.4-10.2) 04/22/16 06:29 Magnesium 1.4 mg/dL (1.7-2.3) L 04/20/16 01:27 Total Bilirubin 1.0 mg/dL (0.1-1.2) 04/21/16 15:25 Direct Bilirubin 0.4 mg/dL (0-0.2) H 04/21/16 15:25 Indirect Bilirubin 0.6 mg/dL 04/21/16 15:25 AST 57 units/L (5-40) H 04/21/16 15:25 ALT 32 units/L (7-56) 04/21/16 15:25 Alkaline Phosphatase 155 units/L (35-129) H 04/21/16 15:25 Ammonia 38.0 umol/L (25-60) 04/21/16 15:25 Total Protein 5.7 g/dL (6.3-8.2) L 04/21/16 15:25 Albumin 2.7 g/dL (3.9-5) L 04/21/16 15:25 Albumin/Globulin Ratio 0.9 % 04/21/16 15:25 TSH 1.500 mlU/mL (0.270-4.200) 04/20/16 02:59 Urine Color Yellow (Yellow) 04/20/16 03:20 Urine Turbidity Clear (Clear) 04/20/16 03:20 Urine pH 8.0 (5.0-7.0) H 04/20/16 03:20 Ur Specific [place] 1.003 (1.003-1.030) 04/20/16 03:20 Urine Protein <15 mg/dl mg/dL (Negative) 04/20/16 03:20 Urine Glucose (UA) Neg mg/dL (Negative) 04/20/16 03:20 Urine Ketones Neg mg/dL (Negative) 04/20/16 03:20 Urine Blood Neg (Negative) 04/20/16 03:20 Urine Nitrite Neg (Negative) 04/20/16 03:20 Urine Bilirubin Neg (Negative) 04/20/16 03:20 Urine Urobilinogen < 2.0 mg/dL (<2.0) 04/20/16 03:20 Ur Leukocyte Esterase Sm (Negative) 04/20/16 03:20 Urine WBC (Auto) 14.0 /HPF (0.0-6.0) H 04/20/16 03:20 Urine RBC (Auto) 5.0 /HPF (0.0-6.0) 04/20/16 03:20 U Epithel Cells (Auto) 5.0 /HPF (0-13.0) 04/20/16 03:20 Urine Bacteria (Auto) 1+ /HPF (Negative) 04/20/16 03:20 Plasma/Serum Alcohol < 0.01 gm% (0-0.07) 04/20/16 12:28
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
[2016-04-23] MEDS ORDERED: VASELINE LIP THERAPY TP PRN (21:52)
[2016-04-24] MEDS: LIBRIUM PO SCH ×4 (00:15→22:30)
[2016-04-24] MEDS: AMBIEN PO PRN ×2 (00:16→23:27)
[2016-04-24] MEDS: NACL 0.9% 1000 ML 1,000 ML IV SCH ×2 (00:19→08:42)
[2016-04-24] MEDS ORDERED: XANAX PO SCH (10:00)
--- NOTE | 2016-04-24 10:46 | Consultation ---
History of Present Illness Consult date: 04/24/16 Requesting physician: CALEB ESPARZA Reason for Consult: seizure Chief complaint: seizure History of present illness: 56 YO F Hx seizure since 1 year ago ? etiology last episode 6 months ago who p/ w breakthrough seizure on 04/19 @ 10:30 AM. She reports LOC. Duration is unclear. There were no clear aggravating, relieving or temporal factors. Severity enough to cause neck pain and LOC. She denies Sz risk factors beyond recent decrease in Xanax and EtOH cessation 2 days prior. She is now back to her baseline. Past History Past Medical History: seizures (idiopathic) Past Surgical History: Other (neck and back sx) Social history: single, Lives alone, alcohol abuse (3-4 oz/day), other (lives with her , school 9th grade, 1 child, no work, support from , no abuse history). denies: prescription drug abuse, IV drug use Family history: no significant family history Medications and Allergies Allergies Allergy/AdvReac Type Severity Reaction Status Date / Time azithromycin Allergy Unknown Verified 04/20/16 00:28 [From Zithromax Z-Mitchell] Sulfa (Sulfonamide Allergy Rash Verified 04/20/16 00:28 Antibiotics) Home Medications Medication Instructions Recorded Confirmed Last Taken Type ALPRAZolam [Xanax TAB] 1 mg PO BID 04/20/16 04/20/16 2 Days Ago History Zolpidem [Ambien] 10 mg PO QHS 04/20/16 04/20/16 1 Day Ago History 10 Active Meds: Active Medications Acetaminophen (Tylenol) 650 mg PO Q4H PRN PRN Reason: Pain MILD(1-3)/Fever >100.5/MCINTYRE Alprazolam (Xanax) 1 mg PO DAILY VINOD Bisacodyl (Dulcolax) 10 mg UT QDAY PRN PRN Reason: Constipation unrelieved by MOM Chlordiazepoxide HCl (Librium) 50 mg PO Q8H [facility] Last Admin: 04/24/16 06:14 Dose: 50 mg Enoxaparin Sodium (Lovenox) 40 mg SUB-Q QDAY [facility] Last Admin: 04/23/16 09:49 Dose: 40 mg Folic Acid (Folvite) 1 mg PO QDAY [facility] Last Admin: 04/23/16 09:50 Dose: 1 mg Haloperidol Lactate (Haldol) 5 mg IM Q4H PRN PRN Reason: Agitation Last Admin: 04/22/16 14:24 Dose: 5 mg Hydralazine HCl (Apresoline) 10 mg IV Q4HR PRN PRN Reason: BP >160/100 Hydrophilic Ointment (Vaseline Lip Therapy) 1 applic TP DIRECT PRN PRN Reason: Dry Lips Last Admin: 04/24/16 01:08 Dose: 1 applic Sodium Chloride (Nacl 0.9% 1000 Ml) 1,000 mls @ 100 mls/hr IV DIRECT VINOD Last Admin: 04/24/16 08:42 Dose: 100 mls/hr Ceftriaxone Sodium (Rocephin/Ns 1 Gm/50 Ml) 1 gm in 50 mls @ 100 mls/hr IV Q24HR VINOD PRN Reason: Protocol Last Admin: 04/23/16 09:49 Dose: 100 mls/hr Levetiracetam (Keppra) 500 mg PO BID [facility] Last Admin: 04/23/16 21:37 Dose: 500 mg Lorazepam (Ativan) 2 mg IV Q1H PRN PRN Reason: CIWA-Ar 8-15 Last Admin: 04/23/16 21:37 Dose: 2 mg Magnesium Hydroxide (Milk Of Magnesia) 30 ml PO Q4H PRN PRN Reason: Constipation Multivitamins (Theragran Tab) 1 each PO QDAY [facility] Last Admin: 04/23/16 09:50 Dose: 1 each Nicotine (Habitrol) 14 mg TD QDAY [facility] Last Admin: 04/23/16 09:49 Dose: 14 mg Ondansetron HCl (Zofran) 4 mg IV Q8H PRN PRN Reason: N/V unrelieved by Reglan Thiamine HCl (Vitamin B-1) 100 mg PO QDAY [facility] Last Admin: 04/23/16 09:50 Dose: 100 mg Zolpidem Tartrate (Ambien) 10 mg PO QHS PRN PRN Reason: Insomnia Last Admin: 04/24/16 00:16 Dose: 10 mg Review of Systems Constitutional: fatigue, weakness, chronic pain Neurological: seizures, vertigo, headaches, convulsions Psychiatric: anxiety, memory loss, change in sleep habits, sleep disturbances, insomnia, hypersomnia, depression, anxiety attacks, difficulties concentrating, irritability, sadness/tearfullness, mood swings, no suicidal ideation, no hallucinations Physical Examination - Vital Signs Vital Signs: Vital Signs Temp Pulse Resp BP Pulse Ox 98.5 F 94 H 14 148/98 99 04/20/16 00:21 04/20/16 00:21 04/20/16 00:21 04/20/16 00:21 04/20/16 00:21 - Constitutional General appearance: comfortable - EENT EENT: Present: ATNC, PERRL, mucous membranes moist, hearing intact, vision intact, other (C-collar in place) - Respiratory Respiratory: Present: chest non-tender, normal breath sounds, no respiratory distress - Cardiovascular Cardiovascular: Present: regular rate Extremities: Present: no peripheral edema bilatateraly, no clubbing, cyanosis, no inflammation, no ischemia or petechiae - Gastrointestinal Gastrointestinal: Present: normoactive bowel sounds, non-distended - Integumentary Integumentary: Present: normal - Neurologic Cranial nerve examination: PERRL, EOMI, VFF, V1/V2/V3 grossly intact, face symmetric, tongue midline, intact, intact shoulder shrug, intact cough reflex, Intact Vestibulo-ocular r, intact corneal reflex, normal palatal elevation Speech examination: intact Sensorimotor examination: intact Detailed motor examination: full strength in all shantell Motor examination - right side: 5/5: biceps, triceps, wrist flexion, wrist extension, key carrier, hip flexors, knee extensors, dorsiflexion, toe extension (EHL) , plantarflexion Motor examination - left side: 5/5: biceps, triceps, wrist flexion, wrist extension, key carrier, hip flexors, knee extensors, dorsiflexion, toe extension (EHL) , plantarflexion Detailed sensory examination: intact, light touch, temperature Reflex and gait examination: intact - Musculoskeletal Musculoskeletal: Present: no fluid collection, no pain, normal range of motion - Psychiatric Psychiatric: Present: mood/affect appropriate, cooperative Results - Laboratory Findings CBC and BMP: 04/22/16 06:29 04/22/16 06:29 Abnormal Lab Findings: Abnormal Labs 04/20/16 04/21/16 04/21/16 11:24 08:09 15:25 RBC MCV MCH Plt Count Lymph % (Auto) [place] % (Auto) Sodium 135 L D Carbon Dioxide 21 L BUN 3 L Creatinine 0.5 L Glucose Calcium 8.0 L Direct Bilirubin 0.4 H AST 57 H Alkaline Phosphatase 155 H Ammonia 23.0 L Total Protein 5.7 L Albumin 2.7 L 04/22/16 04/22/16 06:29 06:29 RBC 2.99 L MCV 105 H MCH 36 H Plt Count 96 L Lymph % (Auto) 40.7 H [place] % (Auto) 7.5 H Sodium Carbon Dioxide 19 L BUN 4 L Creatinine 0.6 L Glucose 58 L Calcium Direct Bilirubin AST Alkaline Phosphatase Ammonia Total Protein Albumin Assessment and Plan 56 YO F Hx suspected EtOH/Xanax abuse as well as prior seizure for 1 year Hx not on AEDs d/t side effects who p/w breakthrough reported sz in setting of decreased Xanax use and EtOH cessation 2 days prior. She has intact symmetric neuro exam w/o deficits. CTH neg. I suspect withdrawal seizure. Plan and Recommendation: 1. Telemetry bed w/ Q4 hour neuro checks & Sz precautions 2. Labs: Serum/Urine Tox, UA/UCx, Electrolytes especially Na, Ca, Mg, and Glucose, TSH, 3. AED therapy: No indication for AED therapy beyond resumption of prior home med doses 4. Avoid meds that can lower sz threshold e.g. Tramadol, fluroquinolones, carbapenems 5. Pt advised of [place] driving regulations: report date of presumed Seizure/ unexplained loss of consciousness/awareness spell to DMV, refrain from operating a motor vehicle for 6 months after this date, and avoid unsupervised activity particularly around water or heights 6. Neurologically clear for discharge once resolved fully to baseline w/o recurrent seizure for 24 hrs. 7. Follow up as outpt with Neurology 8. We can revisit as needed
[2016-04-24] MEDS: KEPPRA PO SCH ×2 (11:08→21:39)
[2016-04-24] MEDS: VITAMIN B-1 PO SCH (11:08)
[2016-04-24] MEDS: THERAGRAN Tab PO SCH (11:08)
[2016-04-24] MEDS: ROCEPHIN/NS 1 GM/50 ML 1 GM/50 ML BAG IV SCH (11:31)
[2016-04-24] MEDS: LOVENOX SUB-Q SCH (11:32)
[2016-04-24] MEDS: HABITROL TD SCH (11:33)
[2016-04-24] MEDS: FOLVITE PO SCH (11:34)
--- NOTE | 2016-04-24 12:45 | Progress Note ---
Assessment and Plan Assessment and plan: Suspected seizure-like Activity - Neurology consult appreciated, no AED needed at this time - No seizure activity after admission Status post fall - CT of head and neck was done for fracture Psychosis - Psych consult appreciated - Patient is agitated and is on haloperidol - Patient is on restraints History of alcohol abuse, DT - On [facility] protocol - Last drink was 2 days before admission DVT prophylaxis Disposition - Patient is medically stable - Disposition is per psychiatry. History Interval history: Patient was seen and evaluated this morning, the patient was calm and cooperative. Her was in the room and I examined her, he attested that she has been drinking alcohol last week. Hospitalist Physical - Physical exam Narrative exam: Patient was calm and cooperative. The patient appeared well nourished and normally developed. Vital signs as documented. Head exam is unremarkable. No scleral icterus . Neck is without jugular venous distension, thyromegaly, or carotid bruits. Lungs are clear to auscultation. Cardiac exam reveals regular rate and Rhythm. First and second heart sounds normal. No murmurs, rubs or gallops. Abdominal exam reveals normal bowel sounds, no masses, no organomegaly and no aortic enlargement. Extremities are nonedematous and both femoral and pedal pulses are normal. PULL OVER: Alert and oriented 3. - Constitutional Vitals: Temp Pulse Resp BP Pulse Ox 97.3 F L 81 18 117/65 100 04/24/16 08:17 04/24/16 08:17 04/24/16 08:17 04/24/16 08:17 04/24/16 08:17 Results - Labs CBC & Chem 7: 04/22/16 06:29 04/22/16 06:29 Labs: Laboratory Last Values WBC 5.6 K/mm3 (4.5-11.0) 04/22/16 06:29 RBC 2.99 M/mm3 (3.65-5.03) L 04/22/16 06:29 Hgb 10.8 gm/dl (10.1-14.3) 04/22/16 06:29 Hct 31.4 % (30.3-42.9) D 04/22/16 06:29 MCV 105 fl (79-97) H 04/22/16 06:29 MCH 36 pg (28-32) H 04/22/16 06:29 MCHC 34 % (30-34) 04/22/16 06:29 RDW 15.2 % (13.2-15.2) 04/22/16 06:29 Plt Count 96 K/mm3 (140-440) L 04/22/16 06:29 Lymph % (Auto) 40.7 % (13.4-35.0) H 04/22/16 06:29 [place] % (Auto) 7.5 % (0.0-7.3) H 04/22/16 06:29 Eos % (Auto) 3.0 % (0.0-4.3) 04/22/16 06:29 Baso % (Auto) 0.7 % (0.0-1.8) 04/22/16 06:29 Lymph # 2.3 K/mm3 (1.2-5.4) 04/22/16 06:29 [place] # 0.4 K/mm3 (0.0-0.8) 04/22/16 06:29 Eos # 0.2 K/mm3 (0.0-0.4) 04/22/16 06:29 Baso # 0.0 K/mm3 (0.0-0.1) 04/22/16 06:29 Seg Neutrophils % 48.1 % (40.0-70.0) 04/22/16 06:29 Seg Neutrophils # 2.7 K/mm3 (1.8-7.7) 04/22/16 06:29 Sodium 137 mmol/L (137-145) 04/22/16 06:29 Potassium 3.6 mmol/L (3.6-5.0) 04/22/16 06:29 Chloride 98.6 mmol/L (98-107) 04/22/16 06:29 Carbon Dioxide 19 mmol/L (22-30) L 04/22/16 06:29 Anion Gap 23 mmol/L 04/22/16 06:29 BUN 4 mg/dL (7-17) L 04/22/16 06:29 Creatinine 0.6 mg/dL (0.7-1.2) L 04/22/16 06:29 Estimated GFR > 60 ml/min 04/22/16 06:29 BUN/Creatinine Ratio 6.66 % 04/22/16 06:29 Glucose 58 mg/dL (65-100) L 04/22/16 06:29 Calcium 8.5 mg/dL (8.4-10.2) 04/22/16 06:29 Magnesium 1.4 mg/dL (1.7-2.3) L 04/20/16 01:27 Total Bilirubin 1.0 mg/dL (0.1-1.2) 04/21/16 15:25 Direct Bilirubin 0.4 mg/dL (0-0.2) H 04/21/16 15:25 Indirect Bilirubin 0.6 mg/dL 04/21/16 15:25 AST 57 units/L (5-40) H 04/21/16 15:25 ALT 32 units/L (7-56) 04/21/16 15:25 Alkaline Phosphatase 155 units/L (35-129) H 04/21/16 15:25 Ammonia 38.0 umol/L (25-60) 04/21/16 15:25 Total Protein 5.7 g/dL (6.3-8.2) L 04/21/16 15:25 Albumin 2.7 g/dL (3.9-5) L 04/21/16 15:25 Albumin/Globulin Ratio 0.9 % 04/21/16 15:25 TSH 1.500 mlU/mL (0.270-4.200) 04/20/16 02:59 Urine Color Yellow (Yellow) 04/20/16 03:20 Urine Turbidity Clear (Clear) 04/20/16 03:20 Urine pH 8.0 (5.0-7.0) H 04/20/16 03:20 Ur Specific [place] 1.003 (1.003-1.030) 04/20/16 03:20 Urine Protein <15 mg/dl mg/dL (Negative) 04/20/16 03:20 Urine Glucose (UA) Neg mg/dL (Negative) 04/20/16 03:20 Urine Ketones Neg mg/dL (Negative) 04/20/16 03:20 Urine Blood Neg (Negative) 04/20/16 03:20 Urine Nitrite Neg (Negative) 04/20/16 03:20 Urine Bilirubin Neg (Negative) 04/20/16 03:20 Urine Urobilinogen < 2.0 mg/dL (<2.0) 04/20/16 03:20 Ur Leukocyte Esterase Sm (Negative) 04/20/16 03:20 Urine WBC (Auto) 14.0 /HPF (0.0-6.0) H 04/20/16 03:20 Urine RBC (Auto) 5.0 /HPF (0.0-6.0) 04/20/16 03:20 U Epithel Cells (Auto) 5.0 /HPF (0-13.0) 04/20/16 03:20 Urine Bacteria (Auto) 1+ /HPF (Negative) 04/20/16 03:20 Plasma/Serum Alcohol < 0.01 gm% (0-0.07) 04/20/16 12:28
--- NOTE | 2016-04-24 15:34 | Progress Note ---
Subjective - Reason for Consult Consult date: 04/24/16 Reason for consult: psychiatric follow up - Chief Complaint Chief complaint: seizure Mental Status Exam - Vital signs Last Vital Signs Temp 97.3 F L 04/24/16 08:17 Pulse 81 04/24/16 08:17 Resp 18 04/24/16 08:17 BP 117/65 04/24/16 08:17 Pulse Ox 100 04/24/16 08:17 - Exam Narrative exam: Ms. Fox was sitting up in bed eating, with her present. She is not in restraints. She reports feeling better. Her discussed how he thought her medications were causing seizures. She acknowledges alcohol use. Orientation: time, place, person Affect: anxious Mood: anxious Thought content: other (no suicidal or homicidal ideation) Thought Process: Intact Perceptions: none Speech: normal rate and pattern Concentration: distractible Motor activity: normal Level of consciousness: alert Memory: Recent Impaired Sleep Symptoms: Restless Interaction: cooperative Assessment and Plan 56 year old WF who presented to [facility] after incurring a seizure after hitting her head once she became dizzy after taking vertigo medication. Agitation/psychosis: we do need collateral- preferably from the to determine extent of drinking and benzo use. The recent behaviors could be suggestive of ongoing withdrawal and delirium tremens in the absence of any known psychotic illness. At this time suggest using one benzo for withdrawal purposes and proceeding with full detox from etoh/benzos. Supportive treatment while awaiting for further information. PRN use of ativan and an antipsychotic can be used in the meantime to address the physical aggression stemming from psychotic behaviors and any withdrawal. haldol 5mg IM q4 for aggression. continue with detox protocol with [facility]. Remove concurrent use of Xanax as the patient drinks and shouldn't be prescribed this medication. 04/22/16: No changes in the above recommendations. 04/24/16: No changes in the above recommendations.
[2016-04-24] MEDS: ATIVAN IV PRN (21:39)
[2016-04-25] MEDS: LIBRIUM PO SCH ×3 (06:03→23:50)
[2016-04-25 07:21] LABS: Anion Gap 14 mmol/L; Blood Urea Nitrogen 3 mg/dL (7-17); Calcium 7.7 mg/dL (8.4-10.2); Carbon Dioxide 20 mmol/L (22-30); Chloride 110.5 mmol/L (98-107); Glucose 85 mg/dL (65-100); Potassium 3.2 mmol/L (3.6-5.0); Sodium 141 mmol/L (137-145)
--- NOTE | 2016-04-25 09:39 | Progress Note ---
Subjective - Reason for Consult Reason for consult: psych managemnet - Chief Complaint Chief complaint: 56 year old WF who presented to [facility] after incurring a seizure after hitting her head once she became dizzy after taking vertigo medication. Patient has improved greatly from when last seen by me. She now states that it was a mistake thinking those girls were out to harm her. She denies any paranoia regarding females at home or anyone in the hospital. She denies any hallucinations. She denies any depression or SI/HI/AH/VH. She feels that she is returning back to her normal self. She is sleeping and eating fine. No agitation per the sitter. No euphoria or grandiosity. She notes that she cannot explain what happened to bring her to the hospital in a psychotic state. She denies any current outpt psych treatment. She is able to tell me that her can give further information. Mental Status Exam - Vital signs Last Vital Signs Temp 97.1 F L 04/25/16 07:48 Pulse 78 04/25/16 07:48 Resp 18 04/25/16 07:48 BP 128/76 04/25/16 07:48 Pulse Ox 99 04/25/16 07:48 - Exam Orientation: place, person Affect: normal Mood: calm Thought Process: Intact Perceptions: none Speech: normal rate and pattern Concentration: distractible Motor activity: normal Level of consciousness: alert Memory: Intact Interaction: cooperative Assessment and Plan 56 year old WF who presented to [facility] after incurring a seizure after hitting her head once she became dizzy after taking vertigo medication. Patient currently is highly agitated and disorganized at the time of interview- but less than before. She was displaying psychotic symptoms and unable to give me a clear history. Agitation/psychosis: we do need collateral- will call the . Patient can now taper off the Xanax- which she has tolerated during this hospitalization. Continue management with CIWA and Haldol PRNs. After acquiring more information from the we can comment on our recs for dispo.
[2016-04-25] MEDS: ROCEPHIN/NS 1 GM/50 ML 1 GM/50 ML BAG IV SCH (11:37)
[2016-04-25] MEDS: VITAMIN B-1 PO SCH (11:38)
[2016-04-25] MEDS: FOLVITE PO SCH (11:38)
[2016-04-25] MEDS: THERAGRAN Tab PO SCH (11:38)
[2016-04-25] MEDS: HABITROL TD SCH (11:39)
[2016-04-25] MEDS: LOVENOX SUB-Q SCH (11:40)
[2016-04-25] MEDS: KEPPRA PO SCH ×2 (11:44→22:29)
[2016-04-25] MEDS: ATIVAN IV PRN (15:55)
--- NOTE | 2016-04-25 21:49 | Progress Note ---
Assessment and Plan - Patient Problems (1) Seizure Current Visit: Yes Status: Acute Plan to address problem: Continue current therapy, D/C to psych, Pt medically optimized. (2) Mood disorder Current Visit: Yes Status: Acute Plan to address problem: Continue current therapy, psych consulted, (3) DVT prophylaxis Current Visit: Yes Status: Acute History Interval history: Pt resting in bed, No reported nursing events. Pt medically optimized. pending D /C to psych. Pt denies pain. Hospitalist Physical - Constitutional Vitals: Temp Pulse Resp BP Pulse Ox 97.1 F L 78 18 128/76 99 04/25/16 07:48 04/25/16 07:48 04/25/16 07:48 04/25/16 07:48 04/25/16 07:48 General appearance: Present: no acute distress - EENT Eyes: Present: PERRL, EOM intact ENT: hearing intact - Neck Neck: Present: supple - Respiratory Respiratory effort: normal Respiratory: bilateral: CTA - Cardiovascular Rhythm: regular Heart Sounds: Present: S1 & S2 - Extremities Extremities: no ischemia Peripheral Pulses: within normal limits - Abdominal General gastrointestinal: soft, non-distended, no hepatomegaly, no splenomegaly - Integumentary Integumentary: Present: clear, dry - Psychiatric Psychiatric: appropriate mood/affect, cooperative - Neurologic Neurologic: CNII-XII intact Results - Labs CBC & Chem 7: 04/22/16 06:29 04/25/16 05:56 Labs: Laboratory Last Values WBC 5.6 K/mm3 (4.5-11.0) 04/22/16 06:29 RBC 2.99 M/mm3 (3.65-5.03) L 04/22/16 06:29 Hgb 10.8 gm/dl (10.1-14.3) 04/22/16 06:29 Hct 31.4 % (30.3-42.9) D 04/22/16 06:29 MCV 105 fl (79-97) H 04/22/16 06:29 MCH 36 pg (28-32) H 04/22/16 06:29 MCHC 34 % (30-34) 04/22/16 06:29 RDW 15.2 % (13.2-15.2) 04/22/16 06:29 Plt Count 96 K/mm3 (140-440) L 04/22/16 06:29 Lymph % (Auto) 40.7 % (13.4-35.0) H 04/22/16 06:29 [place] % (Auto) 7.5 % (0.0-7.3) H 04/22/16 06:29 Eos % (Auto) 3.0 % (0.0-4.3) 04/22/16 06:29 Baso % (Auto) 0.7 % (0.0-1.8) 04/22/16 06:29 Lymph # 2.3 K/mm3 (1.2-5.4) 04/22/16 06:29 [place] # 0.4 K/mm3 (0.0-0.8) 04/22/16 06:29 Eos # 0.2 K/mm3 (0.0-0.4) 04/22/16 06:29 Baso # 0.0 K/mm3 (0.0-0.1) 04/22/16 06:29 Seg Neutrophils % 48.1 % (40.0-70.0) 04/22/16 06:29 Seg Neutrophils # 2.7 K/mm3 (1.8-7.7) 04/22/16 06:29 Sodium 141 mmol/L (137-145) 04/25/16 05:56 Potassium 3.2 mmol/L (3.6-5.0) L 04/25/16 05:56 Chloride 110.5 mmol/L (98-107) H 04/25/16 05:56 Carbon Dioxide 20 mmol/L (22-30) L 04/25/16 05:56 Anion Gap 14 mmol/L 04/25/16 05:56 BUN 3 mg/dL (7-17) L 04/25/16 05:56 Creatinine 0.4 mg/dL (0.7-1.2) L 04/25/16 05:56 Estimated GFR > 60 ml/min 04/25/16 05:56 BUN/Creatinine Ratio 7.50 % 04/25/16 05:56 Glucose 85 mg/dL (65-100) 04/25/16 05:56 Calcium 7.7 mg/dL (8.4-10.2) L 04/25/16 05:56 Magnesium 1.4 mg/dL (1.7-2.3) L 04/20/16 01:27 Total Bilirubin 1.0 mg/dL (0.1-1.2) 04/21/16 15:25 Direct Bilirubin 0.4 mg/dL (0-0.2) H 04/21/16 15:25 Indirect Bilirubin 0.6 mg/dL 04/21/16 15:25 AST 57 units/L (5-40) H 04/21/16 15:25 ALT 32 units/L (7-56) 04/21/16 15:25 Alkaline Phosphatase 155 units/L (35-129) H 04/21/16 15:25 Ammonia 38.0 umol/L (25-60) 04/21/16 15:25 Total Protein 5.7 g/dL (6.3-8.2) L 04/21/16 15:25 Albumin 2.7 g/dL (3.9-5) L 04/21/16 15:25 Albumin/Globulin Ratio 0.9 % 04/21/16 15:25 TSH 1.500 mlU/mL (0.270-4.200) 04/20/16 02:59 Urine Color Yellow (Yellow) 04/20/16 03:20 Urine Turbidity Clear (Clear) 04/20/16 03:20 Urine pH 8.0 (5.0-7.0) H 04/20/16 03:20 Ur Specific [place] 1.003 (1.003-1.030) 04/20/16 03:20 Urine Protein <15 mg/dl mg/dL (Negative) 04/20/16 03:20 Urine Glucose (UA) Neg mg/dL (Negative) 04/20/16 03:20 Urine Ketones Neg mg/dL (Negative) 04/20/16 03:20 Urine Blood Neg (Negative) 04/20/16 03:20 Urine Nitrite Neg (Negative) 04/20/16 03:20 Urine Bilirubin Neg (Negative) 04/20/16 03:20 Urine Urobilinogen < 2.0 mg/dL (<2.0) 04/20/16 03:20 Ur Leukocyte Esterase Sm (Negative) 04/20/16 03:20 Urine WBC (Auto) 14.0 /HPF (0.0-6.0) H 04/20/16 03:20 Urine RBC (Auto) 5.0 /HPF (0.0-6.0) 04/20/16 03:20 U Epithel Cells (Auto) 5.0 /HPF (0-13.0) 04/20/16 03:20 Urine Bacteria (Auto) 1+ /HPF (Negative) 04/20/16 03:20 Plasma/Serum Alcohol < 0.01 gm% (0-0.07) 04/20/16 12:28
[2016-04-25 23:34] VITALS: BP 116/73
[2016-04-26] MEDS: NACL 0.9% 1000 ML 1,000 ML IV SCH (05:52)
--- NOTE | 2016-04-26 08:40 | Discharge Summary ---
Providers - Providers Date of Admission: 04/20/16 11:10 Attending physician: CLIVE GOMEZ Primary care physician: [employer] Hospitalization Condition: Good Hospital course: 56 YO Female admitted for Seizure disorder, Encephalopathy, suspected secondary to ETOH withdrawl complicated by psychosis, and malnutrition and psychosis. Pt treated with ETOH withdrawl protocol, IVF, and supportive care. Pt benzo discontinued. Psych service consulted and 1013 ordered. Pt convalesced well during hospital course with improvement in symptoms and cognition. Pt medically optimized and back to usual state of health. Pt seen and evaluated prior to discharge but no significant new physical exam findings since admission. Psych service rescinded 1013 and patient cleared for discharge from mental health standpoint. Pt discharged home and instructed to f/u pcp 1wk for f/u care, and age/risk factor appropriate screening, and psych f/u as outpatient as directed. Pt counseled regarding balanced high protein diet. 35 minutes dedicated to patient discharge and education. Disposition: DISCHARGED TO HOME OR SELFCARE - Discharge Diagnoses (1) Seizure Status: Acute (2) Mood disorder Status: Acute (3) Malnutrition Status: Acute (4) Encephalopathy Status: Acute (5) DVT prophylaxis Status: Acute Core Measure Documentation - Palliative Care Palliative Care/ Comfort Measures: Not Applicable - Core Measures Any of the following diagnoses?: none Exam - Constitutional Vitals: Temp Pulse Resp BP Pulse Ox 97.9 F 80 20 116/73 100 04/25/16 23:33 04/25/16 23:33 04/25/16 23:33 04/25/16 23:33 04/25/16 23:33 General appearance: Present: no acute distress, well-nourished - EENT Eyes: Present: PERRL ENT: hearing intact, clear oral mucosa - Neck Neck: Present: supple, normal ROM - Respiratory Respiratory effort: normal Respiratory: bilateral: CTA - Cardiovascular Heart Sounds: Present: S1 & S2. Absent: rub, click - Extremities Extremities: pulses symmetrical, No edema Peripheral Pulses: within normal limits - Abdominal General gastrointestinal: Present: soft, non-tender, non-distended, normal bowel sounds Female genitourinary: Present: normal - Integumentary Integumentary: Present: clear, warm, dry - Musculoskeletal Musculoskeletal: gait normal, strength equal bilaterally - Psychiatric Psychiatric: appropriate mood/affect, intact judgment & insight - Neurologic Neurologic: CNII-XII intact, moves all extremities Plan Follow up with: PRIMARY CARE,MD [Primary Care Provider] - 3-5 Days Prescriptions: Folic Acid [Folvite] 1 mg PO QDAY #30 tablet levETIRAcetam [Keppra TAB] 500 mg PO BID #60 tablet Multivitamin Tab [Multiple Vitamin TAB (Theragran)] 1 each PO QDAY #30 tablet Thiamine [Vitamin B-1] 100 mg PO QDAY #30 tablet
[2016-04-26] MEDS: LIBRIUM PO SCH ×2 (08:44→16:27)
[2016-04-26] MEDS: ROCEPHIN/NS 1 GM/50 ML 1 GM/50 ML BAG IV SCH (10:00)
[2016-04-26] MEDS: VITAMIN B-1 PO SCH (10:04)
[2016-04-26] MEDS: HABITROL TD SCH (10:04)
[2016-04-26] MEDS: KEPPRA PO SCH (10:05)
[2016-04-26] MEDS: THERAGRAN Tab PO SCH (10:05)
[2016-04-26] MEDS: FOLVITE PO SCH (10:05)
--- NOTE | 2016-04-26 15:43 | Progress Note ---
Subjective - Reason for Consult Consult date: 04/26/16 Reason for consult: psychiatric follow up - Chief Complaint Chief complaint: 56 year old MG who presented to [facility] after incurring a seizure after hitting her head once she became dizzy after taking vertigo medication. She reports she was drinking alcohol and that is why she ended up in the hospital. She has complaints of anxiety. She denies any hallucinations. She denies any depression or SI/HI/AH/VH. She is sleeping and eating well. Mental Status Exam - Vital signs Last Vital Signs Temp 97.9 F 04/25/16 23:33 Pulse 80 04/25/16 23:33 Resp 20 04/25/16 23:33 BP 116/73 04/25/16 23:33 Pulse Ox 100 04/25/16 23:33 - Exam Narrative exam: No suicidal or homicidal ideation Orientation: time, place, person Affect: normal Mood: anxious Thought content: other (logical) Thought Process: Intact Perceptions: none Speech: normal rate and pattern Concentration: focused Motor activity: normal Level of consciousness: alert Memory: Intact Sleep Symptoms: None Interaction: cooperative, pleasant Assessment and Plan 56 year old WF who presented to [facility] after incurring a seizure after hitting her head once she became dizzy after taking vertigo medication. There are no acute safety concerns. Recommendation: Follow up with outpatient therapy, psychiatry, and AA meetings Referrals provided
[2016-04-26] MEDS: LOVENOX SUB-Q SCH (16:27)
== END 2016-04-26 16:35 | disposition home or self-care (01) | DRG 100 ==
LOC: ED 23:50 → 3A 04-20 11:10
PROVIDERS: ADMIT Internal Medicine; ATTEND Internal Medicine
DX: G40.909 Epilepsy, unspecified, not intractable, without status epilepticus (principal); G93.40 Encephalopathy, unspecified; E87.1 Hypo-osmolality and hyponatremia; N39.0 Urinary tract infection, site not specified; E44.0 Moderate protein-calorie malnutrition; I10 Essential (primary) hypertension; F29 Unspecified psychosis not due to a substance or known physiological condition; E83.42 Hypomagnesemia; F39 Unspecified mood [affective] disorder; F17.210 Nicotine dependence, cigarettes, uncomplicated; F10.10 Alcohol abuse, uncomplicated; M21.371 Foot drop, right foot; W07.XXXA Fall from chair, initial encounter; Y93.89 Activity, other specified; Y92.89 Other specified places as the place of occurrence of the external cause; Y99.8 Other external cause status; Z88.2 Allergy status to sulfonamides; Z88.1 Allergy status to other antibiotic agents; Z71.6 Tobacco abuse counseling; Z91.14 Patient's other noncompliance with medication regimen; Z68.20 Body mass index [BMI] 20.0-20.9, adult
CPT/HCPCS: 36415; 70450; 71010; 72125; 80048; 80053; 80074; 80320; 81001; 82140; 83735; 84443; 85025; 85027; 87086; 93005; 93010; 96365; 96366; 96368; G0480; J0696; J1630; J1650; J2060; J3411; J3475; J3486; J7030